=== PATIENT | female | born 2000 | race Hispanic/Latino ===

== ENCOUNTER 2021-09-19 21:20 | Emergency (ER) | payer SELFPAY ==
[2021-09-19] MEDS ORDERED: Ondansetron ODT 4 MG TAB ONE (22:09)
[2021-09-19 22:10] LABS: Bilirubin Negative (Negative); Clarity Clear (Clear); Glucose, Urine (Dipstick) Negative (Negative); Ketone, Urine Negative (Negative); Leukocyte Trace (Negative); Nitrite Negative (Negative); Pregnancy Test - Urine (BHCG) Negative (Negative); Pregu Control Background? CLEAR/WHITE (CLR/WHITE); Pregu Control Bar Appear? YES (CONTROL BAR); Protein, Urine (Dipstick) Negative (Neg-Trace); Specific Gravity 1.015 (1.002-1.036); Specific Gravity, Urine 1.025 (1.005-1.030); pH, Urine 8.5 (5.0-9.0)
[2021-09-19 22:11] LABS: Blood, Urine Negative (Negative)
[2021-09-19 22:13] LABS: Bacteria/HPF None Seen HPF (None Seen); RBC/HPF None Seen HPF (0-3); Squamous Epithelial None Seen HPF (0-3)
[2021-09-19] MEDS ORDERED: Ibuprofen 200 MG TAB ONE (22:30)
[2021-09-19] MEDS ORDERED: Sulfameth/Trimethoprim DS 800-160mg TAB ONE (22:46)
== END 2021-09-19 22:52 | disposition home or self-care (01) ==
LOC: NAV ERS 21:20
DX: M54.50 Low back pain, unspecified (principal); R10.30 Lower abdominal pain, unspecified; R10.816 Epigastric abdominal tenderness
CPT/HCPCS: 81003; 81015; 81025; 87086; 99284; Q0162